=== PATIENT | female | born 1955 | race Two or more races ===

== ENCOUNTER 2017-08-17 16:40 | Emergency (ER) | payer MEDICAID ==
[~2017-08-17] VITALS: Ht 154.9 cm; Wt 63.5 kg
--- NOTE | 2017-08-17 19:09 | NUR ---
DR MOSER AT THE BEDSIDE FOR MSE.
[2017-08-17 19:11] VITALS: BP 140/88
--- NOTE | 2017-08-17 19:11 | NUR ---
Patient discharged to home in stable conditon. Written and verbal after care instructions given. Patient verbalizes understanding of instructions.
== END 2017-08-17 19:13 | disposition home or self-care (01) ==
LOC: ER 16:42
DX: K08.89 Other specified disorders of teeth and supporting structures (principal)
CPT/HCPCS: A4663